=== PATIENT | male | born 1965 | race Caucasian/White ===

== ENCOUNTER 2017-02-26 09:41 | Emergency (ER) | payer OTHER ==
--- NOTE | 2017-02-26 09:47 | PDOC ---
Attending Attestation - Resident Resident Name: Dread Suero - ED Attending Attestation I have performed the following: I have examined & evaluated the patient, The case was reviewed & discussed with the resident, I agree w/resident's findings & plan, Exceptions are as noted - HPI HPI: 02/26/17 09:46 The patient is a 51 year old male with a sigificant past medical history of ITP , who presents with a pruritic rash. He recently returned from travel to [place] and [place] 1 week ago. The rash started on Tuesday around his ankles. It then spread his trunk. It is now spreading to his extremities. It does not involve his face, palms/soles or mucous membranes. It is red and itchy. He also had diarrhea on Tuesday and for a few days after. It has now resolved. For the past two days he feels that his mouth is "chapped" and that it feels slightly "tingly" though he suspects that this is because his lips are dry. He denies extremity paresthesias. He denies any other symptoms. He denies fever. He denies myalgia / arthralgia. 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 All of his travel companions symptoms have now resolved. The patient had blood work done by his primary care physician approximately 5 days ago, which was reportedly normal. His travel dip stand loader also had blood work done approximately 6 days ago, which was also reportedly normal. He took "a few pills of prednisone" on Tuesday with no improvement. He then took benadryl with minimal resolution of the rash. He saw a emergency department nurse who recommended testing for [place], Zikka and Dengue fever. He was also given Zyrtec which did not relieve the symptoms. 02/26/17 10:06 02/26/17 10:55 - Physicial Exam PE: 02/26/17 10:10 He is well appearing and in no acute distress He has a diffuse, eyththematous, blanching, macolopapular rash on his trunk and extremities - Medical Decision Making 02/26/17 10:12 Will draw basic labs Will discuss with ID 02/26/17 10:54 Labs noted and discussed with the patient I gave him copies Infectious disease feels that discharge with outpatient follow-up is appropriate Clinical impression: Suspected viral exanthem I discussed the physical exam findings, ancillary test results and final diagnoses with the patient. I answered all of the patient's questions. The patient was satisfied with the care received and felt comfortable with the discharge plan and treatment plan. The patient will call their primary care physician within 24 hours to arrange follow-up and will return to the Emergency Department with any new, persistent or worsening symptoms. 02/26/17 10:55 Discharge Disposition - Diagnosis Rash - Discharge Dispostion Disposition: HOME Condition at time of disposition: Stable - Referrals Referrals: Eulogio Matthews MD [Staff Physician] - Call tomorrow - Patient Instructions Printed Discharge Instructions: DI for Rash, DI for Viral Syndrome Additional Instructions: The symptoms you're having are most likely secondary to a virus. It is very important that you follow-up with the infectious disease managed services sales consultant on Tuesday, for further evaluation. Return to the emergency department immediately with ANY new, persistent or worsening symptoms. You MUST call and follow up with your doctor tomorrow. Please make sure your doctor reviews the results of your emergency department evaluation.
[2017-02-26 10:03] VITALS: BP 138/95; PULSE 58; TEMP 98.4; BMI 25.4
[2017-02-26 10:20] LABS: BASOPHIL 0.7 % (0-2.0); EOSINOPHIL 11.5 % (0-4.5); MCHC 34.2 g/dl (32.0-35.9); MEAN CELL VOLUME 90.6 fl (80-96); NEUTROPHILS 48.7 % (42.8-82.8); PLATELET COUNT 122 K/MM3 (134-434); RDW 12.1 % (11.9-15.9); WHITE BLOOD COUNT 5.8 K/mm3 (4.0-10.8)
--- NOTE | 2017-02-26 10:21 | PDOC ---
History of Present Illness - General Chief Complaint: Rash Stated Complaint: itchy Rash all over x 1 week Time Seen by Provider: 02/26/17 09:45 History Source: Patient Exam Limitations: No Limitations - History of Present Illness Initial Comments: 51 yo M with h/o ITP presented to the ED with diffuse rash 7 days ago. He was in [place] and [place] with his friend who also had similar rash after drinking coffee with buffalo milk. He flew back to [place] on Sat[place] and first noticed blanching rash on b/l posterior lower legs with watery diarrhea which has resolved after 2 days but the rash has been progressively spreading all over his body. He said his friend's rash had similar course and now had resolved. He took PO predisone and zyrtec with with no relief but Benadryl with some relief/ . He is now also c/o mass sensation and lip tingling in the past 2 days. Denies fever, chills, chest pain, rash on palm and sole, sob, abd pain. 02/26/17 10:34 Past History - Travel Traveled outside of the country in the last 30 days: Yes If so, where?: [facility] and [place] - Past Medical History Allergies/Adverse Reactions: Allergies Allergy/AdvReac Type Severity Reaction Status Date / Time amoxicillin AdvReac Verified 02/26/17 09:43 Home Medications: Ambulatory Orders NK [No Known Home Medication] 02/26/17 Other medical history: ITP - Psycho/Social/Smoking Cessation Hx Suicidal Ideation: No Smoking History: Never smoked Hx Alcohol Use: (occasional) Drug/Substance Use Hx: No Substance Use Type: None Review of Systems - Review of Systems Able to Perform ROS?: Yes Is the patient limited Japanese proficient: No Constitutional: No: Chills, Fever, Malaise HEENTM: Yes: Other (mass feeling in his throat). No: Recent change in vision, Throat Swelling, Difficulty Swallowing Respiratory: No: Cough, Shortness of Breath Cardiac (ROS): No: Chest Pain ABD/GI: Yes: Diarrhea. No: Difficulty Swallowing, Nausea, Vomiting : No: Dysuria Neurological: No: Headache, Numbness *Physical Exam - Vital Signs Last Vital Signs Temp Pulse Resp BP Pulse Ox 98.4 F 58 L 18 138/95 98 02/26/17 09:45 02/26/17 09:45 02/26/17 09:45 02/26/17 09:45 02/26/17 09:45 - Physical Exam General Appearance: No: Apparent Distress HEENT: negative: Pharyngeal Erythema, Tonsillar Exudate, Tonsillar Erythema, Nasal Congestion Neck: positive: Trachea midline, Supple. negative: Lymphadenopathy (R), Lymphadenopathy (L) Respiratory/Chest: positive: Lungs Clear, Normal Breath Sounds Cardiovascular: positive: Regular Rhythm, Regular Rate, S1, S2. negative: Murmur Gastrointestinal/Abdominal: positive: Normal Bowel Sounds. negative: Tender, Distended, Guarding, Rebound, Tenderness Lymphatic: negative: Adenopathy, Tenderness Integumentary: negative: Jaundice Neurologic: positive: supervisor paint II-XII NML intact, Fully Oriented, Alert ED Treatment Course - LABORATORY CBC & Chemistry Diagram: 02/26/17 10:00 02/26/17 10:00 Medical Decision Making - Medical Decision Making 02/26/17 10:[address] Matthews. Because patient looks non-toxic, will obtain basic lab work. *DC/Admit/Observation/Transfer Diagnosis at time of Disposition: Rash - Discharge Dispostion Disposition: HOME Condition at time of disposition: Stable Admit: No - Referrals Referrals: Eulogio Matthews MD [Staff Physician] - Call tomorrow - Patient Instructions Printed Discharge Instructions: DI for Viral Syndrome, DI for Rash Additional Instructions: The symptoms you're having are most likely secondary to a virus. It is very important that you follow-up with the infectious disease nutrition consultant on Tuesday, for further evaluation. Return to the emergency department immediately with ANY new, persistent or worsening symptoms. You MUST call and follow up with your doctor tomorrow. Please make sure your doctor reviews the results of your emergency department evaluation.
[2017-02-26 10:34] LABS: ACTIVATED PTT 28.3 SECONDS (24.0-38.9)
[2017-02-26 10:35] LABS: ALK PHOS 48 U/L (32-92); ANION GAP 4 (8-16); BILIRUBIN,TOTAL 0.7 mg/dl (0.2-1.0); CO2 26 mmol/L (22-28); COCKROFT - GAULT 93.81; CREATININE 1.1 mg/dl (0.6-1.3); GLUCOSE,RANDOM 118 mg/dl (74-106); SGOT/AST 21 U/L (10-42); SGPT/ALT 22 U/L (10-40); TOT PROT 6.9 g/dl (6.4-8.3)
[2017-02-26 10:38] LABS: INR 0.97 (0.82-1.09); PROTHROMBIN TIME (PATIENT) 10.9 SEC (10.2-13.0)
== END 2017-02-26 11:23 | disposition home or self-care (01) ==
LOC: FER 09:41
DX: R21 Rash and other nonspecific skin eruption (principal); D69.3 Immune thrombocytopenic purpura
CPT/HCPCS: 36415; 80053; 85025; 85610; 85730; 87040; 99281-25